=== PATIENT | female | born 1990 | race Two or more races ===

== ENCOUNTER 2024-02-05 10:29 | Emergency (ER) | payer OTHER ==
[~2024-02-05] VITALS: Ht 182.9 cm; Wt 68.0 kg
[2024-02-05] MEDS ORDERED: BENADRYL25 MG (11:10)
[2024-02-05] MEDS ORDERED: [UNRECOGNIZED DRUG - OTHER] (11:10)
[2024-02-05] MEDS ORDERED: CEFTRIAXONE SODIUM 1,000 MG VIAL IV STA (11:26)
[2024-02-05] MEDS ORDERED: KETOROLAC TROMETHAMINE 15 MG VIAL IV STA (11:26)
[2024-02-05 12:10] LABS: HEMATOCRIT 45.1 % (36.0-45.00); HEMOGLOBIN 15.8 g/dL (12.0-15.00); MEAN CELL VOLUME 84.6 fL (80.00-100.00); MEAN CORPUSCULAR HEMOGLOBIN 29.5 pg (27.00-32.0); MEAN CORPUSCULAR HGB CONC 34.9 g/dl (32.0-36.0); PLATELET COUNT 301 K/uL (150-450); RED BLOOD COUNT 5.33 M/uL (4.00-6.00); RED CELL DISTRIBUTION WIDTH 14.4 % (11.5-14.5)
== END 2024-02-05 12:41 | disposition home or self-care (01) ==
LOC: ER 10:31
PROVIDERS: General Practice
DX: L03.116 Cellulitis of left lower limb (principal)